=== PATIENT | female | born 1970 | race Caucasian/White ===

== ENCOUNTER 2017-01-18 13:22 | Outpatient (CLI) | payer BC | END 2017-01-18 18:23 | disposition home or self-care (01) | LOC: SMA 13:22 | DX: Z12.31 Encounter for screening mammogram for malignant neoplasm of breast (principal) | CPT/HCPCS: G0202 ==

== ENCOUNTER 2018-05-06 15:53 | Outpatient (CLI) | payer BC | END 2018-05-06 18:00 | disposition home or self-care (01) | LOC: SMA 15:53 | PROVIDERS: ATTEND Family Medicine | DX: Z12.31 Encounter for screening mammogram for malignant neoplasm of breast (principal) | CPT/HCPCS: 77067 ==

== ENCOUNTER 2018-07-03 09:16 | Outpatient (CLI) | payer BC | END 2018-07-03 18:50 | disposition home or self-care (01) | LOC: SMA 09:16 | PROVIDERS: ATTEND Family Medicine | DX: R92.8 Other abnormal and inconclusive findings on diagnostic imaging of breast (principal) | CPT/HCPCS: 76642; 77065 ==